=== PATIENT | male | born 1965 | race Caucasian/White ===

== ENCOUNTER → 2017-10-18 | Outpatient (CLI) | payer BC ==
[~2017-10-18] MED LIST: ATOR10TA82 PO; LISI5TAB3 PO; ONDA4TAB7 SL
[2017-10-18 13:31] LABS: AST/SGOT 26 U/L (15-37); BLOOD UREA NITROGEN 20 mg/dl (7-18); BUN/CREATININE RATIO 16.4 (10-20); CALCIUM 8.7 mg/dl (8.5-10.1); CARBON DIOXIDE 26 mmol/L (21-32); CHLORIDE 107 mmol/L (98-107); CHOLESTEROL 153 mg/dl (0-200); CREATININE 1.21 mg/dl (0.60-1.40); GLUCOSE 82 mg/dl (70-99); POTASSIUM 4.3 mmol/L (3.5-5.1); SODIUM 141 mmol/L (136-145)
[2017-10-18 13:35] LABS: CHOLESTEROL/HDL RATIO 3.4; HDL CHOLESTEROL 45 mg/dl; LDL CHOLESTEROL CALCULATED 71 mg/dl; TRIGLYCERIDES 184 mg/dl (0-150); VERY LOW DENSITY LIPOPROT CALC 37 mg/dl
== END | disposition home or self-care (01) ==
LOC: C.LABMFLN 07:49
PROVIDERS: ATTEND Family Medicine
DX: N20.0 Calculus of kidney (principal); E78.00 Pure hypercholesterolemia, unspecified; I10 Essential (primary) hypertension; Z12.5 Encounter for screening for malignant neoplasm of prostate; S61.509A Unspecified open wound of unspecified wrist, initial encounter; X58.XXXA Exposure to other specified factors, initial encounter

== ENCOUNTER → 2017-11-06 | Outpatient (CLI) | payer BC ==
--- NOTE | 2017-11-06 11:18 | DIAGNOSTIC IMAGING REPORT ---
[facility] CLINICAL HISTORY: NEPHROLITHIASIS COMPARISON STUDY: 09/30/2015 FINDINGS: There is no pathologic bowel dilatation. The renal shadows are partially obscured overlying bowel gas and fecal material. No renal calculi are evident. Pelvic basin calcifications remain similar and likely represent phleboliths. Surgical clips are again visualized projecting over the left L4 pedicle. IMPRESSION: 1. No pathologic bowel dilatation 2. No urinary tract calculi are visualized on conventional radiographic imaging Electronically signed by: Fred Traylor M.D. 11/06/2017 11:17 AM Dictated Date/Time: 11/06/2017 11:16 AM
== END | disposition home or self-care (01) ==
LOC: C.RAD 10:58
PROVIDERS: ATTEND Family Medicine
DX: N20.0 Calculus of kidney (principal)